=== PATIENT | female | born 1975 | race Caucasian/White ===

== ENCOUNTER 2016-11-15 22:58 | Emergency (ER) | payer BC ==
--- NOTE | ~2016-11-15 | ER ---
PATIENT'S NAME: GURJIT CASEY [facility] AGE: 41 Y [address] ROOM: [place] [address] LOCATION: [facility] ADMIT DATE: 11/15/2016 ER/Outpatient Report DISCHARGE DATE: 11/15/2016 FAMILY PHYSICIAN: Alfonso Skaggs MD ATTENDING PHYSICIAN: James Harris Time of Arrival: Time of Evaluation: Seen at 2310 hours. HISTORY OF PRESENT ILLNESS: The patient is a 41-year-old female, said yesterday she had gone to a wedding and She said after the wedding, she started noticing what appeared to be bites on her arms and lower extremities. The bites were pruritic. So she took two Benadryl before bed. The patient today is continued to have itching despite taking some Benadryl early and some topical Benadryl cream. She had noticed a little bit of hoarseness tonight, but no cough, no wheezing, no swelling of her tongue. PAST MEDICAL HISTORY: ALLERGIES: HAD SOME PROBLEMS WITH NEOSPORIN AND TOPICAL HYDROCORTISONE. CURRENT MEDICATIONS: See her copied list. MEDICAL PROBLEMS: include vee-[id number] diabetes and hypothyroidism. PAST SURGICAL HISTORY: Surgeries include a cholecystectomy. SOCIAL HISTORY: Nonsmoker. Alcohol rarely. REVIEW OF SYSTEMS: GENERAL: Denies fevers or chills. HEAD AND EENT: Denies a sore throat. Has had some mild hoarseness. RESPIRATORY: No cough or wheezing. GASTROINTESTINAL: No abdominal cramping pain, nausea, or vomiting. SKIN: Includes bites on her upper and lower extremities. PHYSICAL EXAMINATION: VITAL SIGNS: Her blood pressure is 179/103, her temperature is 98.7, her respiratory rate 16, pulse 87, and her O2 sats 97% on room air. PATIENT'S NAME: GURJIT CASEY [facility] AGE: 41 Y [address] ROOM: [place] [address] LOCATION: [facility] ADMIT DATE: 11/15/2016 ER/Outpatient Report DISCHARGE DATE: 11/15/2016 FAMILY PHYSICIAN: Alfonso Skaggs MD ATTENDING PHYSICIAN: James Harris GENERAL APPEARANCE: She appears alert, nontoxic. HEENT: Eyes; sclerae are clear. There is no swelling. Ears; TMs intact. Normal landmarks. Mouth and throat; no redness. No edema. NECK: Supple. No adenopathy. LUNGS: Peripherally are clear. No wheezing or rhonchi. SKIN: On her upper extremities, there are circular lesions, somewhat in a linear pattern. It did appear to have a central bite brennen. There is no drainage present. She has similar lesions on her lower extremities and feet. ASSESSMENT: Suspect insect bites, possible bedbugs, possible fleas since she does have a pet. PLAN: The patient had some concerns about taking Benadryl. She has felt it did not work, so we changed the antihistamine to Atarax 50 mg 1 every 6 hours. Recommend since she is allergic to hydrocortisone to continue the either topical Benadryl cream or Calamine lotion. Return to the emergency room, if she has concerns or her symptoms become worse. JOSSELIN RAY FOR DO LTEY HODGSON/rivera /[id number] d: 11/16/16230 t: 11/20/16 0643, OUTPATIENT REPORT
== END 2016-11-15 23:30 | disposition disaster alternative care site (69) ==
LOC: GMED 22:58
DX: L98.8 Other specified disorders of the skin and subcutaneous tissue (principal); E11.9 Type 2 diabetes mellitus without complications; E03.9 Hypothyroidism, unspecified; Z90.49 Acquired absence of other specified parts of digestive tract; Z79.899 Other long term (current) drug therapy; Z79.84 Long term (current) use of oral hypoglycemic drugs; Z88.8 Allergy status to other drugs, medicaments and biological substances